=== PATIENT | female | born 1965 | race Caucasian/White ===

== ENCOUNTER 2021-04-17 00:51 | Emergency (ER) | payer OTHER ==
[~2021-04-17] VITALS: Ht 162.6 cm; Wt 108.9 kg
[2021-04-17] MEDS ORDERED: BIAXIN 500 MG500 M2 PO (01:09)
[2021-04-17 01:35] LABS: INFLUENZA A ANTIGEN Negative (Negative); INFLUENZA B ANTIGEN Negative (Negative)
[2021-04-17 02:17] LABS: URINE BILIRUBIN NEGATIVE (Negative); URINE BLOOD TRACE (Negative); URINE CLARITY CLEAR; URINE COLOR YELLOW; URINE GLUCOSE-RANDOM 1+ (Negative); URINE KETONES NEGATIVE (Negative); URINE LEUKOCYTES NEGATIVE (Negative); URINE NITRITE NEGATIVE (Negative); URINE PROTEIN NEGATIVE (Negative); URINE UROBILINOGEN 0.2 E.U./dl (0.2-1.0)
[2021-04-17 03:27] LABS: ABSOLUTE BASOPHILS 0.1 thou/uL (0.0-0.2); ABSOLUTE EOSINOPHILS 0.2 thou/uL (0.0-0.7); ABSOLUTE LYMPHOCYTES 2.1 thou/uL (0.8-5.3); ABSOLUTE MONOCYTES 0.9 thou/uL (0.0-1.2); ABSOLUTE NEUTROPHILS 9.3 thou/uL (1.6-8.1); BASOPHILS 1.2 %; EOSINOPHILS 1.3 %; HEMATOCRIT 38.5 % (37.0-47.0); HEMOGLOBIN 12.9 gm/dL (12.0-15.0); LYMPHOCYTES 16.5 %; MCHC 33.6 g/dL (28.0-37.0); MCV 83.5 fL (80.0-100.0); MONOCYTES 6.9 %; MPV 7.6 fl. (7.2-11.1); NUCLEATED RBCS 0 /100WBC; PLATELET COUNT* 337 thou/uL (150-400); POLYS 74.1 %; RBC 4.61 mil/uL (4.20-5.00); WBC 12.6 thou/uL (4.0-11.0)
[2021-04-17 03:37] LABS: CALCIUM 9.1 mg/dL (8.5-10.1); CREATININE 0.9 mg/dL (0.6-1.3); POTASSIUM 4.1 mmol/L (3.5-5.1)
[2021-04-17 03:42] LABS: ALBUMIN 3.7 g/dL (3.4-5.0); TOTAL BILIRUBIN 0.4 mg/dL (<0.1-1.0); TOTAL PROTEIN 8.3 g/dL (6.4-8.2)
[2021-04-17] MEDS ORDERED: CARAFATE1 GM PO (05:51)
[2021-04-17] MEDS ORDERED: ACETAMINOPHEN-1 EAC2 PO (05:51)
[2021-04-17] MEDS ORDERED: ZOFRAN ODT4 MG PO (05:51)
--- NOTE | 2021-04-17 11:13 | EKG ---
[place] [address] ELECTROCARDIOGRAM REPORT Name: DETSINIEVER [id number] Admission: 04/17/21 Attend Phys: Discharge: 04/17/21 Date of : 69 Date of Service: 04/17/21309 Report #: [id number] THIS REPORT FOR: //name// [facility] ED Test Date: 2021-04-17 Test Time: 03:10:44 Pat Name: EVER GEORGES Department: Room: Gender: F Digital Engineer: OR : 1965 Requested By: Genie Bah Order Number: [id number] MD: Jayden Lockett Measurements Intervals [place] Rate: 86 P: 44 MN: 173 QRS: -22 QRSD: 84 T: 23 QT: 355 QTc: 425 Interpretive Statements Sinus rhythm Abnormal R-wave progression, early transition Inferior infarct, old No previous ECG available for comparison Electronically Signed On 04-17-2021 11:13:01 [employer] by Jayden Lockett [email or web address] <ELECTRONICALLY SIGNED> By: Jayden Lockett MD, LOCATED WITHIN [facility] 04/17/21 1113 9 9 Jayden Lockett MD, FAC /EPI
== END 2021-04-17 06:00 | disposition home or self-care (01) ==
LOC: M.ERS 00:51
PROVIDERS: Personal Emergency Response Attendant
DX: K86.2 Cyst of pancreas (principal); Z20.822 Contact with and (suspected) exposure to COVID-19; R10.13 Epigastric pain; Z90.49 Acquired absence of other specified parts of digestive tract; Z79.899 Other long term (current) drug therapy; Z88.0 Allergy status to penicillin; Z88.1 Allergy status to other antibiotic agents